=== PATIENT | male | born 1995 ===

== ENCOUNTER 2019-07-05 23:32 | Emergency (ER) | payer SELFPAY ==
[~2019-07-05] VITALS: Ht 170.2 cm; Wt 78.0 kg
[2019-07-05 23:34] VITALS: BP 132/85
== END 2019-07-06 00:09 | disposition left against medical advice (07) ==
LOC: ED 07-06
DX: Z53.21 Procedure and treatment not carried out due to patient leaving prior to being seen by health care provider (principal)

== ENCOUNTER 2020-06-19 16:42 | Emergency (ER) | payer SELFPAY ==
[~2020-06-19] VITALS: Ht 170.2 cm; Wt 74.4 kg
[2020-06-19 16:51] VITALS: BP 120/82
--- NOTE | 2020-06-19 19:20 | NUR ---
PT CALLED BY RADIOLOGY AND PT NIL LOBBY X 1
--- NOTE | 2020-06-19 19:32 | NUR ---
PER [employer]PER[employer]ENT - PT NOT IN LOBBY AT THIS TIME.
--- NOTE | 2020-06-19 20:03 | NUR ---
CALLED PT FOR REPEAT VITALS. NOT IN LOBBY @ 2002.
== END 2020-06-19 20:09 | disposition left against medical advice (07) ==
LOC: ED 16:52
DX: R07.89 Other chest pain (principal); Z53.21 Procedure and treatment not carried out due to patient leaving prior to being seen by health care provider
CPT/HCPCS: 93005